=== PATIENT | female | born 1960 | race Caucasian/White ===

== ENCOUNTER 2017-06-21 12:24 | Outpatient (CLI) | payer OTHER | END 2017-06-21 14:13 | disposition home or self-care (01) | LOC: SONOGRAMA 12:24 | DX: R10.9 Unspecified abdominal pain (principal); T88.8XXA Other specified complications of surgical and medical care, not elsewhere classified, initial encounter ==

== ENCOUNTER 2017-06-21 13:46 | Outpatient (CLI) | payer OTHER | END 2017-06-21 14:02 | disposition home or self-care (01) | LOC: LAB 13:46 | DX: R10.9 Unspecified abdominal pain (principal); T88.8XXA Other specified complications of surgical and medical care, not elsewhere classified, initial encounter ==